=== PATIENT | female | born 1995 | race Two or more races ===

== ENCOUNTER 2018-09-29 22:23 | Emergency (ER) | payer BC ==
[~2018-09-29] VITALS: Ht 165.1 cm; Wt 116.1 kg
[2018-09-29 22:30] VITALS: BP 151/84
[2018-09-29] MEDS ORDERED: AZITHROMYCIN 250 MG TABLET. PO ONE (23:15)
[2018-09-29] MEDS ORDERED: cefTRIAXone IM 250 MG VIAL IM ONE (23:15)
--- NOTE | 2018-09-30 | PHYS DOC ---
Past Medical History Past Medical History: No Pertinent History (TAWNY CHAUHAN APRN) Past Surgical History: Tonsillectomy (TAWNY CHAUHAN APRN) Alcohol Use: None Drug Use: None (TAWNY CHAUHAN APRN) Adult General Chief Complaint Chief Complaint: SEXUALLY TRANSMITTED DISEASE HPI HPI Patient is a 23 year old female who presents to the emergency department with request for treatment for chlamydia. Patient states that her fianc tested positive for chlamydia and she was advised to go get treated. She is currently 20 weeks her last menstrual period was on April 30, 2018, with an estimated due date of February [id number]. She denies any irregular vaginal discharge, lower abdominal pain, back pain, dysuria, or other complaints at this time. Patient denies any pain. Her STONE GRADER is Dr. Carpenter. (TAWNY CHAUHAN APRN) Review of Systems Review of Systems Constitutional: Denies fever or chills [] Eyes: Denies change in visual acuity, redness, or eye pain [] HENT: Denies nasal congestion or sore throat [] Respiratory: Denies cough or shortness of breath [] Cardiovascular: No additional information not addressed in HPI [] GI: Denies abdominal pain, nausea, vomiting, or diarrhea [] : Denies dysuria or hematuria; see HPI [] Musculoskeletal: Denies back pain Integument: Denies rash or skin lesions [] Neurologic: Denies headache All other systems were reviewed and found to be within normal limits, except as documented in this note. (TAWNY CHAUHAN APRN) Current Medications Current Medications Current Medications Medications (Trade) Dose Ordered Sig/Any Start Time Stop Time Status Last Admin Dose Admin Azithromycin (Zithromax) 1,000 mg 1X ONCE 09/29/18 23:15 09/29/18 23:16 DC 09/29/18 23:52 1,000 MG Ceftriaxone Sodium (Rocephin Im) 250 mg 1X ONCE 09/29/18 23:15 09/29/18 23:16 DC 09/29/18 23:52 250 MG (LORETA ZHENG DO) Allergies Allergies Allergies Coded Allergies Type Severity Reaction Last Updated Verified No Known Drug Allergies 09/29/18 No (LORETA ZHENG DO) Physical Exam Physical Exam Constitutional: Well developed, well nourished, no acute distress, non-toxic appearance. [] HENT: Normocephalic, atraumatic, bilateral external ears normal, oropharynx moist, no oral exudates, nose normal. [] Eyes: conjunctiva normal, no discharge. [] Neck: Normal range of motion, no stridor. [] Lungs & Thorax: Respirations even and unlabored, no retractions, no respiratory distress Skin: Warm, dry, no erythema, no rash. [] Extremities: No cyanosis, no clubbing, ROM intact, no edema. [] Neurologic: Alert and oriented X 3, no focal deficits noted. [] Psychologic: Affect normal, judgement normal, mood normal. [] (TAWNY CHAUHAN APRN) Current Patient Data Vital Signs Vital Signs Date Time Temp Pulse Resp B/P (MAP) Pulse Ox O2 Delivery O2 Flow Rate FiO2 09/29/18 22:30 98.2 84 18 151/84 (106) 96 Room Air 98.2 (ZHENG,LORETA Barahona DO) EKG EKG [] (TAWNY CHAUHAN APRN) Radiology/Procedures Radiology/Procedures [] (TAWNY CHAUHAN APRN) Course & Med Decision Making Course & Med Decision Making Pertinent Labs and Imaging studies reviewed. (See chart for details) Patient declined pelvic exam is dx: Contact with suspected exposure to sexually transmitted infection Patient was treated prophylactically with 250 mg of IM Rocephin, and 1 g of PO Zithromax. Patient was instructed to avoid having intercourse until the results of gonorrhea and chlamydia testing are available, patient was notified that these results would not be available for 48 hours. If one or both of these tests is positive, patient needs to refrain from intercourse for approximately 1 week following the treatment of any current partners. [] (TAWNY CHAUHAN APRN) Dragon Disclaimer Dragon Disclaimer This electronic medical record was generated, in whole or in part, using a voice recognition dictation system. (TAWNY CHAUHAN APRN) Departure Departure Impression: Primary Impression: Contact with and (suspected) exposure to infections with a predominantly sexual mode of transmission Additional Impression: Disposition: 01 HOME, SELF-CARE Condition: STABLE Referrals: NO PCP (PCP) Patient Instructions: Sexually Transmitted Diseases (STD) In Additional Instructions: Avoid having intercourse for at least 1 week after treatment today to prevent reinfection. Follow-up with your STONE GRADER next week, return to the ER if symptoms worsen. Attending Signature Attending Signature I have reviewed the PA/PASTING MACHINE OFFBEARER's note and plan of care. I was available for consultation as needed during the patient's visit in the emergency department. I agree with the clinical impression, plan, and disposition. (LORETA ZHENG DO) Problem Qualifiers Additional Impression: Weeks of gestation: 20 weeks Qualified Codes: Z3A.20 - 20 weeks gestation of TAWNY CHAUHAN APRN Sep 30, 2018 00:00 LORETA ZHENG DO Sep 30, 2018 00:37
== END 2018-09-30 00:04 | disposition home or self-care (01) ==
LOC: ER 22:23
DX: O98.312 Other infections with a predominantly sexual mode of transmission complicating pregnancy, second trimester (principal); Z20.2 Contact with and (suspected) exposure to infections with a predominantly sexual mode of transmission; Z3A.20 20 weeks gestation of pregnancy
CPT/HCPCS: 96372; 99283; J0696; Q0144